=== PATIENT | female | born 1945 | race Caucasian/White ===

== ENCOUNTER 2018-12-18 04:32 | Emergency (ER) | payer BC ==
[2018-12-18] MEDS ORDERED: traMADol TAB* 50 MG PO ONE (05:24)
--- NOTE | 2018-12-18 05:24 | ED ---
GI/ HPI - HPI Summary HPI Summary: A 73 y/o female presents to [facility] with a chief complaint of feeling like her female parts are falling out for months worsening yesterday. She reports a stinging, burning pressure in her lower abdomen. She rates her pain as a 4/10 in severity. Her last OB visit was 40 years ago. She denies a SHx of hysterectomy. She takes magnesium. - History of Current Complaint Chief Complaint: EDUrogenitalProblems Time Seen by Provider: 12/18/18 05:07 Stated Complaint: "POS HERNIA" PER PT Hx Obtained From: Patient Onset/Duration: Started Weeks Ago, Still Present Timing: Constant Severity: Moderate Current Severity: Moderate Pain Intensity: 4 - out of 10 Location of Pain: Diffuse Pain Characteristics: Sharp, Pressure, Other: - stinging Associated Signs and Symptoms: Positive: Abdominal Pain. Negative: Fever - Allergy/Home Medications Allergies/Adverse Reactions: Allergies Allergy/AdvReac Type Severity Reaction Status Date / Time Beta-Blockers Allergy Unknown Verified 12/18/18 05:29 (Beta-Adrenergic Bloc Reaction Details gabapentin Allergy GI Upset Verified 12/18/18 04:40 losartan Allergy Unknown Verified 12/18/18 05:30 Reaction Details tramadol Allergy Unknown Verified 12/18/18 05:29 Reaction Details PMH/Surg Hx/FS Hx/Imm Hx Endocrine/Hematology History: Denies: Hx Diabetes Cardiovascular History: Denies: Hx Hypertension, Hx Pacemaker/ICD History: Denies: Hx Renal Disease Musculoskeletal History: Denies: Hx Rheumatoid Arthritis - osteoarthritis, Hx Osteoporosis Sensory History: Denies: Hx Hearing Aid Neurological History: Reports: Other Neuro Impairments/Disorders - 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 LUMBAR SPINAL FUSION (L5-S1) 1998. LUMBAR SPINAL FUSION (L4-L5) 2004. CERVICAL SPINAL FUSION 2005, LUMBAR SPINAL FUSION (L3-L4) 2011 Infectious Disease History: No Infectious Disease History: Denies: Traveled Outside the [place] in Last 30 Days - Family History Known Family History: Negative: Blood Disorder - Social History Alcohol Use: None Hx Substance Use: No Hx Tobacco Use: No Review of Systems Negative: Fever Positive: Abdominal Pain Positive: other - positive: feels like "female parts are falling out" All Other Systems Reviewed And Are Negative: Yes Physical Exam - Summary Physical Exam Summary: VITAL SIGNS: Reviewed. GENERAL: Patient is a well-developed and nourished FEMALE who is lying comfortable in the stretcher. Patient is not in any acute respiratory distress. HEAD AND FACE: No signs of trauma. No ecchymosis, hematomas or skull depressions. No sinus tenderness. EYES: PERRLA, EOMI x 2, No injected conjunctiva, no nystagmus. EARS: Hearing grossly intact. Ear canals and tympanic membranes are within normal limits. MOUTH: Oropharynx within normal limits. NECK: Supple, trachea is midline, no adenopathy, no JVD, no carotid bruit, no c- spine tenderness, neck with full ROM CHEST: Symmetric, no tenderness at palpation LUNGS: Clear to auscultation bilaterally. No wheezing or crackles. CVS: Regular rate and rhythm, S1 and S2 present, no murmurs or gallops appreciated. ABDOMEN: Soft, non-tender. No signs of distention. No rebound no guarding, and no masses palpated. Bowel sounds are normal. EXTREMITIES: FROM in all major joints, no edema, no cyanosis or clubbing. NEURO: Alert and oriented x 3. No acute neurological deficits. Speech is normal and follows commands. SKIN: Dry and warm Pelvic: cystorectocele and 1st degree uterine prolapse Triage Information Reviewed: Yes Vital Signs On Initial Exam: Initial Vitals Temp Pulse Resp BP Pulse Ox 98.4 F 88 16 176/96 99 12/18/18 04:34 12/18/18 04:34 12/18/18 04:34 12/18/18 04:34 12/18/18 04:34 Vital Signs Reviewed: Yes Diagnostics - Vital Signs Vital Signs Temp Pulse Resp BP Pulse Ox 12/18/18 04:34 98.4 F 88 16 176/96 99 - Laboratory Lab Statement: Any lab studies that have been ordered have been reviewed, and results considered in the medical decision making process. GIGU Course/Dx - Course Course Of Treatment: A 73 y/o female presents to [facility] with a chief complaint of feeling like her female parts are falling out for months worsening yesterday. She reports a stinging, burning pressure in her lower abdomen. Her last OB visit was 40 years ago. She denies a SHx of hysterectomy. She takes magnesium. The pelvic exam revealed cystorectocele and 1st degree uterine prolapse. In the ED course the patient was given Percocet PO. The patient was in the ED and had a CT done on 12/12/18 that was essentially negative. The patient will be discharged home and follow up with [facility]. The patient is agreeable with this plan. - Diagnoses Provider Diagnoses: Cystocele, Rectocele Discharge - Sign-Out/Discharge Documenting (check all that apply): Patient Departure - DC Patient Received Moderate/Deep Sedation with Procedure: No - Discharge Plan Condition: Stable Disposition: HOME Patient Education Materials: Rectocele (ED), Cystocele (ED) Referrals: Xiomara Peter MD [Primary Care Provider] - Hafsa Ferreira MD [Medical Doctor] - Additional Instructions: Follow up with Dr. Ferreira. PLEASE RETURN TO THE ED IMMEDIATELY FOR WORSENING OR CONCERNING SYMPTOMS. - Billing Disposition and Condition Condition: STABLE Disposition: Home - Attestation Statements Document Initiated by Scribe: Yes Documenting Scribe: Alpesh Corbett Provider For Whom Margarita is Documenting (Include Credential): Joaquín Leslie MD Scribe Attestation: Alpesh Bae, scribed for Joaquín Leslie MD on 12/18/18 at 0603. Scribe Documentation Reviewed: Yes Provider Attestation: The documentation as recorded by the Alpesh bryan accurately reflects the service I personally performed and the decisions made by Katlyn rivas MD Status of Scribe Document: Viewed
[2018-12-18] MEDS ORDERED: oxyCODONE/Acetamin 5/325 MG* TAB PO ONE (05:30)
[2018-12-18 05:36] VITALS: BP 172/94
== END 2018-12-18 05:35 | disposition home or self-care (01) ==
LOC: ED 04:32
DX: N81.10 Cystocele, unspecified (principal); N81.6 Rectocele; Z88.8 Allergy status to other drugs, medicaments and biological substances
CPT/HCPCS: 99282; A9270-GY